=== PATIENT | female | born 1970 | race Caucasian/White ===

== ENCOUNTER 2023-02-04 10:41 | Outpatient (CLI) | payer OTHER, SELFPAY ==
--- NOTE | 2023-02-04 11:57 | W.ANESCHARGE ---
Anesthesia Charges Start Date/Time Anesthesia Start Date: 02/04/23 Anesthesia Start Time: 11:32 Stop Date/Time Anesthesia Stop Date: 02/04/23 Anesthesia Stop Time: 11:55
--- NOTE | 2023-02-04 12:24 | W.ANESCHARGE ---
Anesthesia Charges Start Date/Time Anesthesia Start Date: 02/04/23 Anesthesia Start Time: 11:32 Stop Date/Time Anesthesia Stop Date: 02/04/23 Anesthesia Stop Time: 11:55
== END 2023-02-04 10:42 | disposition home or self-care (01) ==
LOC: OP CLINIC 10:42
PROVIDERS: PCP Family Medicine; Visit Provider Internal Medicine Gastroenterology
DX: Z12.11 Encounter for screening for malignant neoplasm of colon (principal); Z80.0 Family history of malignant neoplasm of digestive organs
CPT/HCPCS: 00811; 00812; 45378; J2704